=== PATIENT | female | born 2000 | race Caucasian/White ===

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

== ENCOUNTER 2021-01-04 15:04 | Inpatient (IN) | payer MEDICAID ==
[~2021-01-04] VITALS: Ht 175.3 cm; Wt 66.0 kg
[2021-01-04 15:57] LABS: Basophils # (auto) 0 10 ^3/uL (0-0.2); Basophils % (auto) 0.3 % (0.0-2.0); Eosinophils # (auto) 0 10 ^3/uL (0-0.8); Eosinophils % (auto) 0.3 % (0.0-7.0); Hematocrit 40.2 % (36.0-46.0); Hemoglobin 13.9 g/dL (12.2-16.2); Lymphocytes # (auto) 0.7 10 ^3/uL (0.4-5.4); Lymphocytes % (auto) 10.5 % (10.0-50.0); Mean Corpuscular Hgb Conc. 34.6 g/dL (32.0-36.0); Mean Corpuscular Volume 92.7 fL (80.0-100.0); Monocytes # (auto) 0.4 10 ^3/uL (0-1.3); Monocytes % (auto) 6.2 % (0.0-12.0); Neutrophils # (auto) 5.8 10 ^3/uL (1.6-8.6); Neutrophils % (auto) 82.7 % (37.0-80.0); Nucleated Red Blood Cells % 0.1 %; Platelet Count (auto) 225 10^3/uL (140-450); Red Blood Cells 4.34 10^6/uL (4.0-5.20); Red Cell Distribution Width 13.2 % (11.8-14.3); White Blood Cell 7.1 10^3/uL (4.4-10.8)
[2021-01-04 16:16] LABS: Albumin 4.5 g/dL (3.4-5.0); Calcium 9.2 mg/dL (8.5-10.1); Potassium 3.6 mmol/L (3.5-5.1)
[2021-01-04 16:20] LABS: BUN/Creatinine Ratio 14.9
[2021-01-04 16:21] LABS: Bilirubin, Total 0.8 mg/dL (0.2-1.0); Total Protein 8.3 g/dL (6.4-8.2)
[2021-01-04 17:32] LABS: Urine Bacteria FEW /hpf (None Seen); Urine Blood 1+ /uL (Negative); Urine Mucus FEW (None Seen); Urine Specific Gravity 1.024 (1.001-1.035); Urine WBC 8 /hpf (0 - 5)
[2021-01-04] MEDS ORDERED: PROMETHAZINE HCL 25 MG/ML 1ML ONE (17:34)
[2021-01-04 17:38] LABS: Alcohol, Urine < 3.0 mg/dL (0-10); Amphetamine Screen, Urine NEGATIVE (NEGATIVE); Barbiturate Scree,Urine NEGATIVE (NEGATIVE); Benzodiazephine Screen, Urine NEGATIVE (NEGATIVE); Cannabinoid Screen, Urine POSITIVE (NEGATIVE); Cocaine Screen, Urine NEGATIVE (NEGATIVE); Opiate Scree,Urine NEGATIVE (NEGATIVE); Phencyclidine Screen, Urine NEGATIVE (NEGATIVE)
[2021-01-04] MEDS ORDERED: SODIUM CHLORIDE 0.9% 1,000 ML IVB ONE (18:00)
[2021-01-04] MEDS ORDERED: LORazepam 2MG/ML-1ML VIAL IV PRN (21:30)
[2021-01-04] MEDS ORDERED: ACETAMINOPHEN 325 MG TAB PO PRN (21:30)
[2021-01-04] MEDS ORDERED: TEMAZEPAM 15 MG CAP PO PRN (21:30)
[2021-01-04] MEDS ORDERED: ONDANSETRON HCL 4 MG/2 ML VIAL IV PRN (21:30)
[2021-01-04] MEDS: levETIRAcetam 500 MG TAB PO SCH (22:55)
[2021-01-04] MEDS: FAMOTIDINE 20 MG TAB PO SCH (22:55)
[2021-01-04 23:40] VITALS: BP 113/69
[2021-01-05 05:00] VITALS: BP 113/54
[2021-01-05 06:33] LABS: Basophils # (auto) 0 10 ^3/uL (0-0.2); Basophils % (auto) 0.3 % (0.0-2.0); Eosinophils # (auto) 0.1 10 ^3/uL (0-0.8); Eosinophils % (auto) 0.8 % (0.0-7.0); Hematocrit 37.8 % (36.0-46.0); Hemoglobin 13.2 g/dL (12.2-16.2); Lymphocytes # (auto) 2.1 10 ^3/uL (0.4-5.4); Lymphocytes % (auto) 27.9 % (10.0-50.0); Mean Corpuscular Hemoglobin 32.7 pg (28.0-32.0); Mean Corpuscular Hgb Conc. 34.8 g/dL (32.0-36.0); Mean Corpuscular Volume 93.7 fL (80.0-100.0); Monocytes # (auto) 0.8 10 ^3/uL (0-1.3); Monocytes % (auto) 10.4 % (0.0-12.0); Neutrophils # (auto) 4.5 10 ^3/uL (1.6-8.6); Neutrophils % (auto) 60.6 % (37.0-80.0); Platelet Count (auto) 203 10^3/uL (140-450); Red Blood Cells 4.03 10^6/uL (4.0-5.20); Red Cell Distribution Width 13.5 % (11.8-14.3); White Blood Cell 7.4 10^3/uL (4.4-10.8)
[2021-01-05 06:53] LABS: BUN/Creatinine Ratio 15.2; Calcium 8.7 mg/dL (8.5-10.1); Potassium 3.4 mmol/L (3.5-5.1)
[2021-01-05] MEDS: cefTRIAXone 1GM/50ML D5W 50 ML IV SCH (09:22)
[2021-01-05] MEDS: FAMOTIDINE 20 MG TAB PO SCH ×2 (10:00→22:18)
[2021-01-05] MEDS: levETIRAcetam 500 MG TAB PO SCH ×2 (10:00→22:18)
[2021-01-05 13:00] VITALS: BP 118/74
[2021-01-05] MEDS ORDERED: POTASSIUM CHL 20 Meq TABLET PO ONE (13:15)
[2021-01-05 16:23] VITALS: BP 106/66
[2021-01-05] MEDS: IBUPROFEN 400 MG TAB PO PRN (17:21)
[2021-01-05] MEDS ORDERED: LORazepam 2MG/ML-1ML VIAL IV PRN (19:30)
[2021-01-05 22:00] VITALS: BP 111/56
[2021-01-06 05:00] VITALS: BP 99/49
[2021-01-06 08:00] VITALS: BP 117/72
[2021-01-06] MEDS: cefTRIAXone 1GM/50ML D5W 50 ML IV SCH (09:40)
[2021-01-06] MEDS: levETIRAcetam 500 MG TAB PO SCH (10:13)
[2021-01-06] MEDS: FAMOTIDINE 20 MG TAB PO SCH (10:13)
[2021-01-06] MEDS: IBUPROFEN 400 MG TAB PO PRN (10:14)
[2021-01-06] MEDS ORDERED: LEVE500T32 PO (10:59)
[2021-01-06 12:00] VITALS: BP 121/70
[2021-01-06 12:47] VITALS: BP 121/70
== END 2021-01-06 13:34 | disposition home or self-care (01) | DRG 53 ==
LOC: EDBD 15:04 → ER 15:04 → OVERFLOW 21:28 → CENTRAL 23:04
PROVIDERS: ADMIT Nurse Practitioner; ATTEND Internal Medicine
DX: G40.409 Other generalized epilepsy and epileptic syndromes, not intractable, without status epilepticus (principal); E87.6 Hypokalemia; F12.10 Cannabis abuse, uncomplicated; Z20.822 Contact with and (suspected) exposure to COVID-19; Z79.899 Other long term (current) drug therapy; Z82.49 Family history of ischemic heart disease and other diseases of the circulatory system; Z83.3 Family history of diabetes mellitus
CPT/HCPCS: 36415; 70450; 70551; 80048; 80053; 80307; 81001; 83735; 84132; 84702; 85025; 87086; 87426; 95819; 96365; G0378; J0696